=== PATIENT | female | born 1970 | race Caucasian/White ===

== ENCOUNTER 2018-06-06 09:03 | Emergency (ER) | payer MEDICARE ==
[~2018-06-06] VITALS: Ht 165.1 cm; Wt 86.2 kg
[~2018-06-06 09:03] MED LIST: ALBU2SYA PO; ALBU90OI INH; ALBU90OI6 INH; ALBUIS; ASA; ASPI81CH PO; ASPI81EC PO; BACL10 PO; CARI350 PO; CEPH500 PO; CHLO25B PO; D3; DIAZ5 PO; ERGO400 PO; ERYT.5TO OS; ERYT333ERA; ESTRADIOL; Estradiol1 MG PO; FLUO10 PO; GABA100 PO; GABA600 PO; GUAI120S1 PO; HYDGUAL120 PO; HYDMOR2 PO; Hydrocodone-Ap1 EA23 PO; LISI5 PO; LOSA50 PO; METCAR750 PO; NAPR500 PO; NIAC500 PO; OXYACE5T PO; OXYACE7.5T PO; OXYB5 PO; OXYC5 PO; PENACE PO; PRED10; PROG100 PO; PROZAC20 MG PO; Prednisone20 MG PO; Simvastatin20 MG PO; TEMA15 PO; TIZANIDINE HCL4 MG PO; TRAM50 PO; Tizanidine HCl2 MG PO; Ultram50 MG PO; VARE1 PO; VITAMIN D33000 UNIT PO; ZESTORETIC 20-121 EA PO; [UNRECOGNIZED DRUG - OTHER]
[2018-06-06] MEDS ORDERED: HYDR1TAB94 PO (09:35)
[2018-06-06] MEDS ORDERED: AMLO5 PO (09:35)
[2018-06-06] MEDS ORDERED: TIZANIDINE HCL4 MG PO (09:36)
[2018-06-06] MEDS ORDERED: TOPI100 PO (09:37)
[2018-06-06] MEDS ORDERED: HYDHCL25 PO (12:27)
[2018-06-06] MEDS ORDERED: Percocet 5-3251 EACH PO (12:27)
== END 2018-06-06 13:20 | disposition home or self-care (01) ==
LOC: ER 09:03
DX: G89.29 Other chronic pain (principal); M54.5 Low back pain; M54.2 Cervicalgia; I10 Essential (primary) hypertension; F17.210 Nicotine dependence, cigarettes, uncomplicated; Z79.899 Other long term (current) drug therapy; Z79.51 Long term (current) use of inhaled steroids
CPT/HCPCS: 36415; 72072; 72100; 72125; 96374; 96375; 96376; 99284-25; J2405; J3010

== ENCOUNTER 2018-12-24 16:25 | Emergency (ER) | payer MEDICARE ==
[~2018-12-24] VITALS: Ht 165.1 cm; Wt 95.2 kg
[~2018-12-24 16:25] MED LIST changes: +AMLO5 PO; +Cyclobenzaprine5 MG PO; +HYDHCL25 PO; +HYDR1TAB94 PO; +KETO10 PO; +LIDO700A20 TOP; +Percocet 5-3251 EACH PO; +TOPI100 PO; +[UNRECOGNIZED DRUG - REMARK]
[2018-12-24 16:59] LABS: BASOPHILS ABSOLUTE AUTO 0.06 K/mm3 (0.00-0.23); BASOPHILS PERCENT AUTO 1 % (0-2); EOSINOPHILS ABSOLUTE AUTO 0.12 K/mm3 (0.00-0.68); EOSINOPHILS PERCENT AUTO 1 % (0-6); Hemoglobin 14.3 g/dL (11.5-16.0); IMMATURE GRAN ABSOLUTE AUTO 0.02 K/mm3 (0.00-0.10); IMMATURE GRAN PERCENT AUTO 0 % (0-1); LYMPHOCYTES ABSOLUTE AUTO 3.48 K/mm3 (0.84-5.20); LYMPHOCYTES PERCENT AUTO 34 % (21-46); MONOCYTES ABSOLUTE AUTO 0.56 K/mm3 (0.16-1.47); MONOCYTES PERCENT AUTO 6 % (4-13); Mean Corpuscular Volume 97 fL (80-100); Mean Platelet Volume 10.4 fL (9.1-12.4); NEUTROPHILS ABSOLUTE AUTO 5.92 K/mm3 (1.96-9.15); NEUTROPHILS PERCENT AUTO 58 % (41-73); Platelet Count 234 K/mm3 (150-400); RDW Coefficient Variation 12.8 % (11.7-14.2); RDW Standard Deviation 46.5 fL (35.1-46.3); Red Blood Cell Count 4.33 M/mm3 (3.80-5.20); White Blood Cell Count 10.16 K/mm3 (4.00-11.30)
[2018-12-24] MEDS ORDERED: Norco 5-325 Ta1 EACH PO (17:35)
[2018-12-24 17:47] LABS: Alanine Aminotransfer (ALT/SGP 22 U/L (12-78); Albumin, Blood 4.4 g/dL (3.4-5.0); Albumin/Globulin Ratio 1.3 (0.8-1.8); Alk Phos 76 U/L (50-136); Anion Gap 7 mmol/L (6-16); Aspartate Aminotrans (AST/SGOT 15 U/L (12-37); Bilirubin, Total 0.3 mg/dL (0.1-1.0); Blood Urea Nitrogen 20 mg/dL (8-24); Bun/Creatinine Ratio 21.2 (12.0-20.0); CO2, Blood 23 mmol/L (21-32); Calcium, Blood 9.3 mg/dL (8.5-10.1); Chloride, Blood 113 mmol/L (98-108); Creatinine, Blood 0.94 mg/dL (0.40-1.00); Globulin, Blood 3.3 g/dL (2.2-4.0); Glomerular Filtration Rate >60 (60-); Glucose, Blood 88 mg/dL (70-99); Potassium, Blood 3.6 mmol/L (3.5-5.5); Sodium, Blood 143 mmol/L (136-145); Total Protein, Blood 7.7 g/dL (6.4-8.2); Troponin I <0.015 ng/mL (0.000-0.040)
== END 2018-12-24 17:49 | disposition home or self-care (01) ==
LOC: ER 16:25
PROVIDERS: Physician Assistant
DX: R07.9 Chest pain, unspecified (principal); I10 Essential (primary) hypertension; F17.210 Nicotine dependence, cigarettes, uncomplicated
CPT/HCPCS: 36415; 71046; 80053; 84484; 85025; 93005; 93010; 99284-25

== ENCOUNTER 2019-10-11 13:03 | Emergency (ER) | payer MEDICARE ==
[~2019-10-11] VITALS: Ht 165.1 cm; Wt 88.5 kg
[~2019-10-11 13:03] MED LIST changes: +Norco 5-325 Ta1 EACH PO
== END 2019-10-11 16:21 | disposition home or self-care (01) ==
LOC: ER 13:03
DX: S30.0XXA Contusion of lower back and pelvis, initial encounter (principal); S20.222A Contusion of left back wall of thorax, initial encounter; I10 Essential (primary) hypertension; F17.210 Nicotine dependence, cigarettes, uncomplicated; Z88.0 Allergy status to penicillin; Z88.5 Allergy status to narcotic agent; Z79.899 Other long term (current) drug therapy; V80.010A Animal-rider injured by fall from or being thrown from horse in noncollision accident, initial encounter
CPT/HCPCS: 72070; 72100; 99283-25

== ENCOUNTER 2021-04-27 19:50 | Emergency (ER) | payer MEDICARE, OTHER ==
[~2021-04-27 19:50] MED LIST changes: +Amitiza8 MCG PO; +Aspir 8181 MG PO; +Baclofen10 MG PO; +DULO60 PO; +MELO7.5 PO
== END 2021-04-27 20:05 | disposition home or self-care (01) ==
LOC: ER 19:50
DX: U07.1 COVID-19 (principal); I10 Essential (primary) hypertension; F17.210 Nicotine dependence, cigarettes, uncomplicated; Z88.8 Allergy status to other drugs, medicaments and biological substances; Z88.0 Allergy status to penicillin; Z88.5 Allergy status to narcotic agent; Z91.011 Allergy to milk products; Z91.030 Bee allergy status; Z91.013 Allergy to seafood; Z91.018 Allergy to other foods; Z88.1 Allergy status to other antibiotic agents; Z79.899 Other long term (current) drug therapy; Z79.82 Long term (current) use of aspirin
CPT/HCPCS: 99282

== ENCOUNTER 2022-08-03 14:53 | Emergency (ER) | payer MEDICARE, OTHER ==
[~2022-08-03] VITALS: Ht 165.1 cm; Wt 83.0 kg
[2022-08-03] MEDS ORDERED: Keflex500 MG PO (18:01)
== END 2022-08-03 18:15 | disposition home or self-care (01) ==
LOC: ER 14:53
DX: T21.21XA Burn of second degree of chest wall, initial encounter (principal); X10.1XXA Contact with hot food, initial encounter; L03.313 Cellulitis of chest wall; I10 Essential (primary) hypertension; F17.210 Nicotine dependence, cigarettes, uncomplicated; Z88.6 Allergy status to analgesic agent; Z88.1 Allergy status to other antibiotic agents; Z91.038 Other insect allergy status; Z91.011 Allergy to milk products; Z91.013 Allergy to seafood; Z88.8 Allergy status to other drugs, medicaments and biological substances; Z91.018 Allergy to other foods; Z79.899 Other long term (current) drug therapy; Z79.82 Long term (current) use of aspirin
CPT/HCPCS: 99283

== ENCOUNTER 2023-04-28 11:05 | Emergency (ER) | payer OTHER ==
[~2023-04-28] VITALS: Ht 162.6 cm; Wt 93.0 kg
[~2023-04-28 11:05] MED LIST changes: +Keflex500 MG PO
[2023-04-28 14:13] LABS: BASOPHILS ABSOLUTE AUTO 0.06 K/mm3 (0.00-0.23); BASOPHILS PERCENT AUTO 1 % (0-2); EOSINOPHILS ABSOLUTE AUTO 0.11 K/mm3 (0.00-0.68); EOSINOPHILS PERCENT AUTO 1 % (0-6); Hematocrit 45.3 % (33.0-51.0); Hemoglobin 16.1 g/dL (11.5-16.0); IMMATURE GRAN ABSOLUTE AUTO 0.03 K/mm3 (0.00-0.10); IMMATURE GRAN PERCENT AUTO 0 % (0-1); LYMPHOCYTES ABSOLUTE AUTO 3.51 K/mm3 (0.84-5.20); LYMPHOCYTES PERCENT AUTO 38 % (21-46); MONOCYTES PERCENT AUTO 6 % (4-13); Mean Corpuscular HGB 33.8 pg (26.0-34.0); Mean Corpuscular HGB Conc 35.5 g/dL (31.5-36.5); Mean Corpuscular Volume 95 fL (80-100); Mean Platelet Volume 10.4 fL (9.1-12.4); NEUTROPHILS ABSOLUTE AUTO 5.05 K/mm3 (1.96-9.15); NEUTROPHILS PERCENT AUTO 54 % (41-73); Platelet Count 215 K/mm3 (150-400); RDW Coefficient Variation 12.5 % (11.7-14.2); Red Blood Cell Count 4.76 M/mm3 (3.80-5.20); White Blood Cell Count 9.36 K/mm3 (4.00-11.30)
[2023-04-28] MEDS ORDERED: [UNRECOGNIZED DRUG - OTHER] PO (14:21)
[2023-04-28 14:22] LABS: Albumin/Globulin Ratio 1.2 (0.8-1.8); Bilirubin, Total 0.3 mg/dL (0.1-1.0); Bun/Creatinine Ratio 21.6 (12.0-20.0); Calcium, Blood 9.2 mg/dL (8.5-10.1); Creatinine, Blood 0.74 mg/dL (0.40-1.00); Globulin, Blood 3.4 g/dL (2.2-4.0); Potassium, Blood 3.9 mmol/L (3.5-5.5); Total Protein, Blood 7.4 g/dL (6.4-8.2)
[2023-04-28 16:10] VITALS: BP 152/80
== END 2023-04-28 16:12 | disposition home or self-care (01) ==
LOC: ER 11:05
PROVIDERS: Student in an Organized Health Care Education/Training Program
DX: I87.8 Other specified disorders of veins (principal); I10 Essential (primary) hypertension; E78.5 Hyperlipidemia, unspecified; J45.909 Unspecified asthma, uncomplicated; F17.210 Nicotine dependence, cigarettes, uncomplicated; Z88.1 Allergy status to other antibiotic agents; Z91.030 Bee allergy status; Z91.011 Allergy to milk products; Z88.0 Allergy status to penicillin; Z88.8 Allergy status to other drugs, medicaments and biological substances; Z91.018 Allergy to other foods; Z79.899 Other long term (current) drug therapy
CPT/HCPCS: 80053; 83880; 85025; 93970; J1885